=== PATIENT | male | born 1925 | race Caucasian/White ===

== ENCOUNTER → 2017-01-31 | Outpatient (CLI) | payer OTHER ==
[~2017-01-31] MED LIST: ACET325T96 PO; ASPI81TA28 PO; CLTP PO; CMD1 PO; CYAN10005 PO; DORZ2SOL20 OPB; LATA0.009 OPB; LPR25 PO; LPT10 PO; MULT60CA PO; WARF2TAB PO
[2017-01-31 21:17] LABS: URINE APPEARANCE TURBID (CLEAR); URINE BILIRUBIN NEG (NEG); URINE COLOR YELLOW; URINE EPITHELIAL CELL AUTO 0-5 /lpf (0-5); URINE NITRITE NEG (NEG); URINE PH 8.5 (4.5-7.5); UROBILINOGEN NEG (NEG)
[2017-01-31 21:18] LABS: MANUAL MICROSCOPIC REQUIRED? NO; REVIEW REQ? NO
[2017-01-31 21:20] LABS: SULFASALICYLIC ACID POS (NEG)
== END ==
LOC: C.LABSPEC 13:02
PROVIDERS: ATTEND Physician Assistant Medical
DX: R30.0 Dysuria (principal); R35.0 Frequency of micturition

== ENCOUNTER 2017-04-10 08:10 | Emergency (ER) | payer OTHER ==
[~2017-04-10] VITALS: Ht 162.6 cm; Wt 84.6 kg
[2017-04-10 08:16] VITALS: TEMP 36.5; Ht 162.6 cm; Wt 84.6 kg
[2017-04-10] MEDS ORDERED: AMOX500T3 PO (08:40)
[2017-04-10] MEDS ORDERED: DEXTSYP27 PO (08:40)
[2017-04-10] MEDS ORDERED: [UNRECOGNIZED DRUG - CODE] PO (08:40)
[2017-04-10] MEDS ORDERED: SENN-61 PO (08:40)
[2017-04-10] MEDS ORDERED: GUAI10TA (08:40)
[2017-04-10] MEDS ORDERED: TRAM-10 PO (08:40)
[2017-04-10] MEDS ORDERED: TAMS0.4C38 PO (08:40)
[2017-04-10] MEDS ORDERED: ACET325T96 PO (08:40)
--- NOTE | 2017-04-10 08:41 | EMERGENCY ROOM VISIT NOTE ---
History Report prepared by Melissa: Jaycee Orozco Under the Supervision of: Dr. Vale Dominguez M.D. First contact with patient: 08:14 Chief Complaint: EYE ASSESSMENT Stated Complaint: EYE ASSESSMENT History of Present Illness The patient is an 89 year old male who presents to the Emergency Room with complaints of persistent right eye swelling that began prior to arrival. Per nursing staff the patient arrives via ALS from [facility] in assisted living. The patient states that last evening he went to bed normally, but woke this morning with right eye swelling. He denies any fall. The patient states that he can see normally, but does report a history of macular degeneration. The patient states that he is anticoagulated on Coumadin. He is unsure of any hematuria. The patient denies any pain to his eye. Source of History: patient, nursing staff Onset: prior to arrival Position: eye (right) Quality: other (swelling) Timing: other (persistent) Review of Systems See HPI for pertinent positives & negatives. A total of 10 systems reviewed and were otherwise negative. Past Medical & Surgical Medical Problems: (1) ANTICOAGULANTS,LT,CURRENT USE (2) ATRIAL FIBRILLATION (3) CKD (chronic kidney disease), stage III (4) CVA (cerebral vascular accident) (5) Head trauma (6) Hematuria (7) Hypercholesterolemia (8) TIA (transient ischemic attack) Surgical Problems: (1) Hx of total knee arthroplasty (2) Status post Mohs surgery Family History No significant family history Social History Smoking Status: Never Smoker Marital Status: Housing Status: lives alone Occupation Status: retired Current/Historical Medications Scheduled Amoxicillin (Amoxil), 2,000 MG PO Q24H Aspirin (Aspirin Ec), 81 MG PO DAILY Atorvastatin (Atorvastatin Calcium), 10 MG PO QAM Dorzolamide Hcl-Timolol Maleat (Cosopt Oph), 1 DROPS OPB BID Latanoprost 0.005% Oph (Xalatan 0.005% Oph), 1 DROP OPB HS Metoprolol Tartrate (Lopressor), 25 MG PO BID Niacinamide (Nicotinamide), 500 MG PO BID Tamsulosin Hcl (Flomax), 0.4 MG PO HS Warfarin Sod (Coumadin), 1 MG PO DIRECTED Warfarin Sodium (Coumadin), 2 MG PO DIRECTED Scheduled PRN Acetaminophen Tab (Tylenol), 650 MG PO Q4H PRN for MILD PAIN Acetaminophen Tab (Tylenol), 650 MG PO Q4 PRN for Temp Dextromethorphan-Guaifenesin (Guaifenesin Dm), 10 ML PO Q6 PRN for Cough Senna (Senokot), 2 TAB PO QAM PRN for Constipation Tramadol (Ultram), 25 MG PO Q6 PRN for Pain Tramadol (Ultram), 50 MG PO Q6 PRN for Pain Miscellaneous Medications Guaifenesin (Guaifenesin ER) Allergies Coded Allergies: Lanolin (Verified Allergy, Unknown, 04/10/17) Physical Exam Vital Signs Date Time Temp Pulse Resp B/P (MAP) Pulse Ox O2 Delivery O2 Flow Rate FiO2 04/10/17 12:37 84 20 125/77 96 04/10/17 11:17 87 20 131/82 96 Room Air 04/10/17 09:31 77 18 129/73 97 Room Air 04/10/17 08:16 36.5 90 18 122/75 96 Room Air Physical Exam Vital signs reviewed. General: Well-appearing elderly male, in no significant distress. HEENT: Large subconjunctival hematoma, no obvious bruising. Average intraocular pressure by puffed tonometer- 25. No scleral icterus, PERRLA, neck supple. Cardiovascular: Regular rate and rhythm, no extra sounds. Pulmonary: Clear to auscultation bilaterally, normal work of breathing. Abdomen: Soft, nontender, nondistended, positive bowel sounds. Musculoskeletal: Atraumatic, no peripheral edema. Neurologic: Patient awake alert and oriented x 3, full strength in all 4 extremities. Cranial nerves 2 through 12 grossly intact. Skin: Warm, dry, no rash Medical Decision & Procedures ER Provider Diagnostic Interpretation: CT results as stated below per my review and radiologist interpretation: CT HEAD WITHOUT CONTRAST (CT) CLINICAL HISTORY: Subconjunctival hematoma. ORBITAL BRUISING. PATIENT ON COUMADIN. COMPARISON STUDY: 01/11/2016 TECHNIQUE: Axial CT of the brain is performed from the vertex to the skull base. IV contrast was not administered for this examination. A dose lowering technique was utilized adhering to the principles of ALARA. CT DOSE: 922.93 mGy.cm FINDINGS: No intra or extra-axial mass lesions are visualized. There is no evidence of midline shift. There is no evidence of acute parenchymal or subdural hematoma. There is a 2 cm left occipital hypodensity, likely representing an infarct. This was not present on the prior January 2016 study. There is increased attenuation surrounding the anterior aspect of the right globe, likely representing a hemorrhage. There are patchy white matter hypodensities likely on a small vessel basis. There is no evidence of pathologic ventricular dilatation. There is no evidence of acute sinusitis IMPRESSION: 1. Increased attenuation surrounding the anterior aspect of the right globe, likely representing a hemorrhage 2. Interval development of a 2 cm left occipital hypodensity, likely representing an infarct 3. No evidence of intraparenchymal subarachnoid or subdural hematoma. Electronically signed by: Carlos Montano M.D. 04/10/2017 9:04 AM Dictated Date/Time: 04/10/2017 9:00 AM Laboratory Results 04/10/17 08:45 Red Blood Count 4.22, Mean Corpuscular Volume 99.3, Mean Corpuscular Hemoglobin 33.4, Mean Corpuscular Hemoglobin Concent 33.7, Mean Platelet Volume 10.0, Neutrophils (%) (Auto) 58.8, Lymphocytes (%) (Auto) 22.4, Monocytes (%) (Auto) 12.2, Eosinophils (%) (Auto) 5.9, Basophils (%) (Auto) 0.5, Neutrophils # (Auto ) 3.29, Lymphocytes # (Auto) 1.25, Monocytes # (Auto) 0.68, Eosinophils # (Auto ) 0.33, Basophils # (Auto) 0.03 04/10/17 08:45 Test 04/10/17 08:45 White Blood Count 5.59 K/uL (4.8-10.8) Red Blood Count 4.22 M/uL (4.7-6.1) Hemoglobin 14.1 g/dL (14.0-18.0) Hematocrit 41.9 % (42-52) Mean Corpuscular Volume 99.3 fL (80-100) Mean Corpuscular Hemoglobin 33.4 pg (25-34) Mean Corpuscular Hemoglobin Concent 33.7 g/dl (32-36) Platelet Count 204 K/uL (130-400) Mean Platelet Volume 10.0 fL (7.4-10.4) Neutrophils (%) (Auto) 58.8 % Lymphocytes (%) (Auto) 22.4 % Monocytes (%) (Auto) 12.2 % Eosinophils (%) (Auto) 5.9 % Basophils (%) (Auto) 0.5 % Neutrophils # (Auto) 3.29 K/uL (1.4-6.5) Lymphocytes # (Auto) 1.25 K/uL (1.2-3.4) Monocytes # (Auto) 0.68 K/uL (0.11-0.59) Eosinophils # (Auto) 0.33 K/uL (0-0.5) Basophils # (Auto) 0.03 K/uL (0-0.2) RDW Standard Deviation 52.1 fL (36.4-46.3) RDW Coefficient of Variation 14.5 % (11.5-14.5) Immature Granulocyte % (Auto) 0.2 % Immature Granulocyte # (Auto) 0.01 K/uL (0.00-0.02) Prothrombin Time 25.4 SECONDS (9.0-12.0) Prothromb Time International Ratio 2.5 (0.9-1.1) Activated Partial Thromboplast Time 34.9 SECONDS (21.0-31.0) Partial Thromboplastin Ratio 1.3 Anion Gap 5.0 mmol/L (3-11) Est Creatinine Clear Calc Drug Dose 46.8 ml/min Estimated GFR () 72.6 Estimated GFR (Non- 62.6 BUN/Creatinine Ratio 16.5 (10-20) Calcium Level 9.5 mg/dl (8.5-10.1) Total Bilirubin 0.5 mg/dl (0.2-1) Direct Bilirubin 0.2 mg/dl (0-0.2) Aspartate Amino Transf (AST/SGOT) 27 U/L (15-37) Alanine Aminotransferase (ALT/SGPT) 45 U/L (12-78) Alkaline Phosphatase 77 U/L (45-117) Total Protein 7.0 gm/dl (6.4-8.2) Albumin 3.1 gm/dl (3.4-5.0) Laboratory results per my review. Medications Administered Medications (Trade) Dose Ordered Sig/Omaira Route Start Time Stop Time Status Last Admin Dose Admin Phytonadione 2.5 mg/Sodium Chloride 50.25 ml @ 100.5 mls/ hr ONE ONCE IV 12/7/17 10:15 04/10/17 10:44 DC 04/10/17 10:35 100.5 MLS/HR ED Course 0826: Past medical records reviewed. The patient was evaluated in room A10. A complete history and physical examination was performed. 1006: I reevaluated the patient and he is resting comfortably. I updated the patient on the treatment plan and he verbalized complete understanding and agreement. The patient is ready for discharge shortly. 1015: Ordered Phytonadione 2.5 mg/Sodium Chloride 50.25 ml @ 100.5 mls/hr Protocol IV. 1020: I discussed the patients case with Dr. Mancia, Ophthalmology. He states that he will see the patient in one week in the office. He states that the patient should be taken off his Coumadin. Medical Decision The patient is an 89 year old male who presents to the ED with complaints of right eye swelling. Differentials include Serotherapeutic iNR, trauma, spontaneous hemorrhage, infection. This patient was evaluated and appeared to be in no significant distress. IV access was obtained and laboratory work was drawn. Patient's physical examination is consistent with a large subconjunctival hemorrhage of the right eye. He is on Coumadin with an INR of 2.5. Patient was given vitamin K 2.[address] scan of the head was performed and reveals no evidence of acute intracranial hemorrhage, there is area of previous infarct noted. I did discuss the case with Dr. Shi of ophthalmology. He recommended outpatient follow-up. Patient will stop his Coumadin until further notice. He will return to the ER for worsening of symptoms or any medical concerns. Medication Reconcilliation Current Medication List: was personally reviewed by me Blood Pressure Screening Patient's blood pressure: Normal blood pressure Blood pressure disposition: Did not require urgent referral Consults Time Called: 1010 Consulting Physician: Dr. Mancia, Ophthalmology Returned Call: 1020 I discussed the patients case with Dr. Mancia, Ophthalmology. He states that he will see the patient in one week in the office. He states that the patient should be taken off his Coumadin. Impression Primary Impression: Subconjunctival hemorrhage of right eye Scribe Attestation The scribe's documentation has been prepared under my direction and personally reviewed by me in its entirety. I confirm that the note above accurately reflects all work, treatment, procedures, and medical decision making performed by me. Departure Information Dispostion Home / Self-Care Referrals Garfield Licona M.D. (PCP) Michael Mancia M.D. Forms HOME CARE DOCUMENTATION FORM, IMPORTANT VISIT INFORMATION, WORK / SCHOOL INSTRUCTIONS Patient Instructions My [facility] Additional Instructions Diagnosis: Right eye subconjunctival hemorrhage. Discontinue Coumadin. Discontinue aspirin 1 week. Follow-up with your eye doctor, Dr. Ricardo within the week for reevaluation. Sleep with the head of the bed up at 30.
[2017-04-10 09:02] LABS: BASO % 0.5 %; BASO ABS # 0.03 K/uL (0-0.2); COMPLETE YES; EOS % 5.9 %; HEMATOCRIT 41.9 % (42-52); IG% 0.2 %; LYMPH % 22.4 %; LYMPH ABS # 1.25 K/uL (1.2-3.4); MEAN CELL VOLUME 99.3 fL (80-100); MEAN CORPUSCULAR HEMOGLOBIN 33.4 pg (25-34); MEAN CORPUSCULAR HGB CONC 33.7 g/dl (32-36); MONO % 12.2 %; NEUT % 58.8 %; PLATELET COUNT 204 K/uL (130-400); RED BLOOD COUNT 4.22 M/uL (4.7-6.1); WHITE BLOOD COUNT 5.59 K/uL (4.8-10.8)
--- NOTE | 2017-04-10 09:05 | DIAGNOSTIC IMAGING REPORT ---
CT HEAD WITHOUT CONTRAST (CT) CLINICAL HISTORY: Subconjunctival hematoma. ORBITAL BRUISING. PATIENT ON COUMADIN. COMPARISON STUDY: 01/11/2016 TECHNIQUE: Axial CT of the brain is performed from the vertex to the skull base. IV contrast was not administered for this examination. A dose lowering technique was utilized adhering to the principles of ALARA. CT DOSE: 922.93 mGy.cm FINDINGS: No intra or extra-axial mass lesions are visualized. There is no evidence of midline shift. There is no evidence of acute parenchymal or subdural hematoma. There is a 2 cm left occipital hypodensity, likely representing an infarct. This was not present on the prior January 2016 study. There is increased attenuation surrounding the anterior aspect of the right globe, likely representing a hemorrhage. There are patchy white matter hypodensities likely on a small vessel basis. There is no evidence of pathologic ventricular dilatation. There is no evidence of acute sinusitis IMPRESSION: 1. Increased attenuation surrounding the anterior aspect of the right globe, likely representing a hemorrhage 2. Interval development of a 2 cm left occipital hypodensity, likely representing an infarct 3. No evidence of intraparenchymal subarachnoid or subdural hematoma. Electronically signed by: Carlos Montano M.D. 04/10/2017 9:04 AM Dictated Date/Time: 04/10/2017 9:00 AM
[2017-04-10 09:11] LABS: INR 2.5 (0.9-1.1); PARTIAL THROMBOPLASTIN RATIO 1.3; PROTHROMBIN TIME (PATIENT) 25.4 SECONDS (9.0-12.0)
[2017-04-10 09:23] LABS: BUN/CREATININE RATIO 16.5 (10-20); CALCIUM 9.5 mg/dl (8.5-10.1); CREATININE 1.05 mg/dl (0.60-1.40); POTASSIUM 4.1 mmol/L (3.5-5.1)
[2017-04-10] MEDS ORDERED: PHYTONADIONE INJ 2.5 MG in SODIUM CHLORIDE 0.9% 50ML 50 ML IV ONE (10:15)
[2017-04-10 12:37] VITALS: BP 125/77; PULSE 84; O2SAT 96
== END 2017-04-10 12:39 | disposition home or self-care (01) ==
LOC: EDBD 08:10 → C.ED 08:13 → C.EDA 12:39
DX: H57.8 Other specified disorders of eye and adnexa (principal); Z79.01 Long term (current) use of anticoagulants; I48.91 Unspecified atrial fibrillation; N18.3 Chronic kidney disease, stage 3 (moderate); Z86.73 Personal history of transient ischemic attack (TIA), and cerebral infarction without residual deficits; E78.00 Pure hypercholesterolemia, unspecified; Z79.82 Long term (current) use of aspirin

== ENCOUNTER → 2017-05-07 | Outpatient (CLI) | payer OTHER ==
[~2017-05-07] MED LIST changes: +ACET-1693 PO; -ACET325T96 PO; +AMOX500T3 PO; -CLTP PO; -CYAN10005 PO; +DEXTSYP27 PO; +GUAI10TA; -MULT60CA PO; +OPTIRAY 320 IV PRN; +SENN-61 PO; +TAMS0.4C38 PO; +TRAM-10 PO; +[UNRECOGNIZED DRUG - CODE] PO
--- NOTE | 2017-05-07 12:16 | DIAGNOSTIC IMAGING REPORT ---
CT ABD/PELVIS COMBO CLINICAL HISTORY: R31.9 hematuria COMPARISON STUDY: 08/18/2009 TECHNIQUE: Unenhanced images were obtained through the abdomen and pelvis. The patient was injected with 50 cc of Optiray 320. Following a 5 minute delay, the patient was rescanned in a dynamic helical fashion during the additional administration of 62 cc of Optiray 320. A dose lowering technique was utilized adhering to the principles of ALARA. CT DOSE: 1662.66 mGycm FINDINGS: Lower chest: The heart is mildly enlarged. There is minor lower lobe bronchiectasis with areas of bronchial wall thickening. Liver: There is a 21 mm cyst within the central liver. Gallbladder: Unremarkable. Spleen: Normal in size and attenuation. Pancreas: Unremarkable. Adrenal glands: Unremarkable. Kidneys: There is a 2 mm right renal calculus. No left renal calculi are visualized. No ureteral calculi are visualized. There are subcentimeter right renal cysts. No collecting system filling defects are visualized. No ureteral filling defects are visualized. Bowel: There are no transition zones indicate bowel obstruction. There are no findings to indicate acute appendicitis or acute diverticulitis. Peritoneum: There is no intraperitoneal free air or abdominal ascites. There is minimal infiltration of the presacral fat. There is rectus diastases. Vasculature: The abdominal aorta is normal in course and caliber. Adenopathy: None. Pelvic viscera: There are prostatic calcifications present. There are tiny posterior layering bladder calculi versus posterior bladder wall calcification. Skeletal structures: There are T12 and L2 compression fractures. There is no evidence of lytic bone disease. IMPRESSION: 1. 2 mm nonobstructing right renal calculus 3. Subcentimeter right renal cysts. No solid renal masses identified 3. Tiny posterior layering bladder calculi versus bladder wall calcification Electronically signed by: Carlos Montano M.D. 05/07/2017 12:15 PM Dictated Date/Time: 05/07/2017 12:05 PM
== END | disposition home or self-care (01) ==
LOC: C.CTS 11:12
PROVIDERS: ATTEND Urology
DX: R31.9 Hematuria, unspecified (principal); N20.0 Calculus of kidney